=== PATIENT | male | born 1985 | race American Indian/Alaskan Native ===

== ENCOUNTER 2018-01-25 13:53 | Emergency (ER) | payer SELFPAY ==
[2018-01-25 13:53] VITALS: BMI 30.9
== END 2018-01-25 14:54 | disposition left against medical advice (07) ==
LOC: ED 13:53
DX: Z02.89 Encounter for other administrative examinations (principal); S89.90XA Unspecified injury of unspecified lower leg, initial encounter

== ENCOUNTER 2018-01-31 09:01 | Emergency (ER) | payer MEDICAID, OTHER ==
[2018-01-31 09:35] VITALS: RESP 18; TEMP 98.1; BMI 33.2
[2018-01-31] MEDS ORDERED: Oxycodone/Acetaminophen 5/325 mg Tab PO STA (09:37)
--- NOTE | 2018-01-31 09:44 | ED PDOC ---
Arrival/HPI - General Chief Complaint: Lower Extremity Problem/Injury Time Seen by Provider: 01/31/18 09:30 Historian: Patient - History of Present Illness Narrative History of Present Illness (Text): 01/31/18 09:38 32 y/o male, no significant pmh, nkda, c/o lt. knee pain x 1 week no fall. Pt. stated that the pain is around the patellar region and more on the upper lateral and medial aspect of the knee/thigh region, 03/04, seen at the [facility] about 5 days ago with the lt. knee xray show no acute fracture or dislocation with the report here with the patient, still walking and painful walking. Pt. admits he was playing basketball and jumping prior to the pain which 2 days later he developed the left knee pain, no calf or ankle pain, no other medical or psychological complaints. Past Medical History - Provider Review Nursing Documentation Reviewed: Yes - Past History Past History: No Previous - Tetanus Immunization Tetanus Immunization: Unknown - Past Medical History Past Medical History: No Previous - Cardiac Hx Cardiac Disorders: No - Pulmonary Hx Respiratory Disorders: No - Neurological Hx Neurological Disorder: No - HEENT Hx HEENT Disorder: No - Renal Hx Renal Disorder: No - Endocrine/Metabolic Hx Endocrine Disorders: No - Hematological/Oncological Hx Blood Disorders: No - Integumentary Hx Dermatological Disorder: No - Musculoskeletal/Rheumatological Hx Musculoskeletal Disorders: No - Gastrointestinal Hx Gastrointestinal Disorders: No - Genitourinary/Gynecological Hx Genitourinary Disorders: No - Psychiatric Hx Psychophysiologic Disorder: No Hx Substance Use: No - Past Surgical History Past Surgical History: No Previous - Anesthesia Hx Anesthesia: No - Suicidal Assessment Feels Threatened In Home Enviroment: No Family/Social History - Physician Review Nursing Documentation Reviewed: Yes Family/Social History: Unknown Family HX Smoking Status: Light Smoker < 10 Cigarettes Daily Hx Alcohol Use: Yes Frequency of alcohol use: Socially Hx Substance Use: No Hx Substance Use Treatment: No Allergies/Home Meds Allergies/Adverse Reactions: Allergies No Known Allergies Allergy (Verified 05/02/12 13:04) Review of Systems - Review of Systems Constitutional: absent: Fatigue, Fevers Eyes: absent: Vision Changes ENT: absent: Hearing Changes Respiratory: absent: SOB, Cough Cardiovascular: absent: Chest Pain Gastrointestinal: absent: Abdominal Pain, Diarrhea, Nausea, Vomiting Musculoskeletal: Arthralgias. absent: Back Pain, Neck Pain, Joint Swelling, Myalgias Skin: absent: Rash, Pruritis Neurological: absent: Headache, Dizziness Psychiatric: absent: Anxiety, Depression, Suicidal Ideation Physical Exam Vital Signs Reviewed: Yes Vital Signs Temp Pulse Resp BP Pulse Ox 01/31/18 09:23 98.1 F 72 18 131/87 99 Temperature: Afebrile Blood Pressure: Normal Pulse: Regular Respiratory Rate: Normal Appearance: Positive for: Well-Appearing, Non-Toxic, Comfortable Pain Distress: Moderate Mental Status: Positive for: Alert and Oriented X 3 - Systems Exam Head: Present: Atraumatic, Normocephalic Pupils: Present: PERRL Extroacular Muscles: Present: EOMI Conjunctiva: Present: Normal Mouth: Present: Moist Mucous Membranes Neck: Present: Normal Range of Motion Respiratory/Chest: Present: Clear to Auscultation, Good Air Exchange. No: Respiratory Distress, Accessory Muscle Use Cardiovascular: Present: Regular Rate and Rhythm, Normal S1, S2. No: Murmurs Abdomen: No: Tenderness, Distention, Peritoneal Signs Back: Present: Normal Inspection Upper Extremity: Present: Normal Inspection. No: Cyanosis, Edema Lower Extremity: Present: Normal Inspection, Other (LLE: +ttp on the upper medial and lateral aspect of the distal thigh/upper superior aspect of the tendon region of the patellar, negative xiang and stokes signs, FROM with pain upon full flexion and extension of the lt. knee/hip, +DPPT pulses, capillary refill< 2 seconds, no joint laxity, neurovascular intact. ). No: Edema Neurological: Present: GCS=15, CN II-XII Intact, Speech Normal, Motor Func Grossly Intact, Memory Normal Skin: Present: Warm, Dry, Normal Color. No: Rashes Psychiatric: Present: Alert, Oriented x 3, Normal Insight, Normal Concentration Medical Decision Making ED Course and Treatment: 01/31/18 09:46 Differential: DVT vs. Patellarfemoral syndrome vs. tendonitis vs. ligamentous/ soft tissue injury of the knee which this requires outpatient orthopedic/MRI follow up. -toradol/percocet -xray report reviewed show no fracture or dislocation with no new injury or fall , no indication for repeat xray at this time -LLE venuous doppler order to r/o DVT 01/31/18 10:38 -LLE Venuous Doppler: as per preliminary report, no acute DVT -AURA wrap applied by me with neurovascular intact, pain decreased and feeling much better. -Pt. feels much better, advised the patient that he should rest, ice compress, elevation, crutches, outpatient MRI and orthopedic follow up. -Discharge home with motrin, aura wrap, knee immobilizer, crutches, ice compression, elevation, rest, non-weight bearing, follow up with your own pmd and orthopedic with MRI of the left knee as needed, return to the ER for any new or worsening signs or symptoms. 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 Yes Sleep Is patient sleeping during reassessment? No Presence of Pain Presence of Pain Yes Pain Scale Used Pain Scale Used Numeric Location Left, Right or Bilateral Left Pain Location Body Site Knee Description Description Constant IM Administration Charges Document 01/31/18 09:43 SF (Rec: 01/31/18 09:44 SF [email or web address] Injection Site MAR Injection Site Left Deltoid Charges for Administration # of IM Administrations 1 Oxycodone/Acetaminophen (Percocet 5/325 Mg Tab) 1 tab PO STAT STA Stop: 01/31/18 09:38 Last Admin: 01/31/18 09:43 Dose: 1 tab MAR Pain Assessment Document 01/31/18 09:43 SF (Rec: 01/31/18 09:43 SF [email or web address] Pain Reassessment Is this a pain reassessment? Yes Sleep Is patient sleeping during reassessment? 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 Disposition/Present on Arrival - Present on Arrival Any Indicators Present on Arrival: No History of DVT/PE: No History of Uncontrolled Diabetes: No Urinary Catheter: No History of Decub. Ulcer: No History Surgical Site Infection Following: None - Disposition Have Diagnosis and Disposition been Completed?: Yes Diagnosis: Patella-femoral syndrome Disposition: HOME/ ROUTINE Disposition Time: 09:47 Patient Plan: Discharge Patient Problems: Current Active Problems Problem Status Onset Patella-femoral syndrome Acute Condition: IMPROVED Additional Instructions: -Discharge home with motrin, aura wrap, knee immobilizer, crutches, ice compression, elevation, rest, non-weight bearing, follow up with your own pmd and orthopedic with MRI of the left knee as needed, return to the ER for any new or worsening signs or symptoms. Prescriptions: Ibuprofen [Motrin Tab] 600 mg PO QID #30 tab Referrals: Jessica Wong MD [Staff Provider] - Follow up with primary [facility] [place] [Outside] - [facility] up with primary [facility] [place] - Follow up with primary Forms: WORK NOTE
[2018-01-31 11:15] VITALS: BP 129/82; PULSE 70; O2SAT 100
--- NOTE | 2018-01-31 11:21 | US ---
PROCEDURE: Left lower extremity venous US HISTORY: Leg pain and swelling. Evaluate for DVT. PHYSICIAN(S): Roddy Knox MD. TECHNIQUE: Duplex sonography and color-flow Doppler with graded compression were used to evaluate the deep venous system of the left lower extremity. FINDINGS: The visualized deep venous system of the left lower extremity is sonographically normal and compressible. Normal wave forms and augmentation are seen. There is no sonographic evidence for deep venous thrombosis in the visualized segments of the left lower extremity. IMPRESSION: 1. No sonographic evidence for deep venous thrombosis in the visualized segments of the left lower extremity.
== END 2018-01-31 11:15 | disposition home or self-care (01) ==
LOC: ED 09:01
DX: M22.2X2 Patellofemoral disorders, left knee (principal); F17.210 Nicotine dependence, cigarettes, uncomplicated
CPT/HCPCS: 93971; 96372; 99284; J1885